=== PATIENT | male | born 1975 | race Caucasian/White ===

== ENCOUNTER → 2017-12-15 | Outpatient (CLI) | payer OTHER ==
--- NOTE | 2017-12-15 15:18 | CT ---
EXAMINATION TYPE: CT lumbar spine wo/w con DATE OF EXAM: 12/15/2017 COMPARISON: MR lumbar spine 09/21/2010 HISTORY: Low back pain CT DLP: 2852.0 mGycm Automated exposure control for dose reduction was used. CONTRAST: CT scan of the lumbar is performed without and with IV Contrast, patient injected with mL of Omnipaqu e [address] of the lumbar spine was performed. Bone and soft tissue window settings are submitted as well as coronal and sagittal reconstructions. FINDINGS: There is a mild spinal curvature. Multilevel spondylosis is present. Lumbar vertebral bodies show pre served height, alignment, there is loss of disc height at the intervertebral levels as on prior exam compatible with degenerative disc disease, vacuum phenomenon present at L4-5. Stimulator lead is pres ent coursing within the thecal sac from approximately L3-4 level. No abnormal enhancement on contrast administration. Small cortical cysts suspected within the right kidney. L1-L2: There is facet arthropathy change present. No significant stenosis. No significant foraminal e ncroachment or sizable disc herniation. L2-L3: Broad-based posterior disc bulge causes mild anterior mass effect on the thecal sac. No signif icant foraminal encroachment is central canal stenosis. L3-L4: Posterior disc bulge causes mild effacement of anterior thecal sac. No significant foraminal e ncroachment on the left, circumferential extension endplate disc complex encroaches mildly on the rig ht neural foramen. L4-L5: Posterior extension of endplate disc complex contacts anterior thecal sac, no significant cent ral stenosis, circumferential extension endplate disc complex encroaches somewhat on the neural mario en on the right greater than left, there is facet arthropathy. L5-S1: Posterior broad-based disc bulge could contact the proximal S1 nerve root left greater than ri ght, anterior thecal sac, no significant spinal stenosis. There is associated facet arthropathy. IMPRESSION: Degenerative disc disease, facet arthropathy as described. Post instrumentation changes. Additional f indings above.
== END | disposition home or self-care (01) ==
LOC: RADCTMAIN 13:50
PROVIDERS: ATTEND Anesthesiology Pain Medicine
DX: M51.27 Other intervertebral disc displacement, lumbosacral region (principal); M51.36 Other intervertebral disc degeneration, lumbar region; M46.86 Other specified inflammatory spondylopathies, lumbar region; Z98.890 Other specified postprocedural states
CPT/HCPCS: 72133; Q9967

== ENCOUNTER → 2018-05-25 | Outpatient (CLI) | payer MEDICARE, OTHER ==
[2018-05-25 13:17] LABS: Albumin 3.6 g/dL (3.5-5.0); Bilirubin, Delta 0.3 mg/dL (0.0-0.2); Bilirubin,Unconjugated 0.1 mg/dL (0.0-1.1); Total Bilirubin 0.4 mg/dL (0.2-1.3); Total Protein 6.5 g/dL (6.3-8.2)
== END | disposition home or self-care (01) ==
LOC: LABWHC1 12:42
PROVIDERS: ATTEND Physician Assistant
DX: Z51.81 Encounter for therapeutic drug level monitoring (principal); Z79.891 Long term (current) use of opiate analgesic
CPT/HCPCS: 36415; 80076

== ENCOUNTER → 2018-12-31 | Outpatient (CLI) | payer BC ==
--- NOTE | 2018-12-31 13:00 | CT ---
EXAMINATION TYPE: CT lumbar spine wo/w con DATE OF EXAM: 12/31/2018 COMPARISON: 12/15/2017 HISTORY: Follow up scan per patient. CT DLP: 3051 mGycm CONTRAST: Unenhanced CT of the lumbar spine is performed without and with IV Contrast, patient injected with 10 0 mL of Isovue 300. Unenhanced CT of the lumbar spine was performed. Bone and soft tissue window settings are submitted as well as coronal and sagittal reconstructions. L1-L2: There is facet arthropathy change present. No significant stenosis. No significant foraminal e ncroachment or sizable disc herniation. L2-L3: Broad-based posterior disc bulge causes mild anterior mass effect on the thecal sac. No signif icant foraminal encroachment is central canal stenosis. L3-L4: Posterior disc bulge causes mild effacement of anterior thecal sac. No significant foraminal e ncroachment on the left, circumferential extension endplate disc complex encroaches mildly on the rig ht neural foramen. L4-L5: Posterior extension of endplate disc complex contacts anterior thecal sac, no significant cent ral stenosis, circumferential extension endplate disc complex encroaches somewhat on the neural mario en on the right greater than left, there is facet arthropathy. L5-S1: Posterior broad-based disc bulge could contact the proximal S1 nerve root left greater than ri ght, anterior thecal sac, no significant spinal stenosis. Facet arthropathy noted. No paraspinal masses are identified. Stimulator lead redemonstrated. No pathologic enhancement. Lumba r segments are free if fracture. IMPRESSION: 1. Stable degenerative changes as noted.
== END | disposition home or self-care (01) ==
LOC: RADCTMAIN 10:34
PROVIDERS: ATTEND Anesthesiology Pain Medicine
DX: M47.816 Spondylosis without myelopathy or radiculopathy, lumbar region (principal)
CPT/HCPCS: 72133; Q9967

== ENCOUNTER → 2019-05-14 | Outpatient (CLI) | payer MEDICARE ==
[2019-05-14 15:43] LABS: African American GFR (CKD) 120.8 (60.0-200.0); Albumin/Globulin Ratio 1.82 (1.60-3.17); Anion Gap 7.7 mmol/L (4.00-12.00); BUN/Creat Ratio 12.22 Ratio (12.00-20.00); Carbon Dioxide 24.3 mmol/L (21.6-31.8); Globulin 2.2 g/dL (1.6-3.3); Potassium 4.6 mmol/L (3.5-5.5); Total Bilirubin 0.4 mg/dL (0.2-1.2); Total Protein 6.2 g/dL (6.2-8.2)
== END | disposition home or self-care (01) ==
LOC: LABWHC1 11:01
PROVIDERS: ATTEND Physician Assistant
DX: Z51.81 Encounter for therapeutic drug level monitoring (principal); Z79.891 Long term (current) use of opiate analgesic
CPT/HCPCS: 36415; 80053

== ENCOUNTER → 2020-11-04 | Outpatient (CLI) | payer MEDICARE ==
[2020-11-04 21:16] LABS: Albumin/Globulin Ratio 1.54 (1.60-3.17); Anion Gap 9.2 mmol/L (4.00-12.00); Calcium 9.3 mg/dL (8.7-10.3); Carbon Dioxide 24.8 mmol/L (21.6-31.8); Globulin 2.6 g/dL (1.6-3.3); Non-African American GFR(CKD) 103.5 (60.0-200.0); Potassium 4.7 mmol/L (3.5-5.5); Total Bilirubin 0.3 mg/dL (0.2-1.2); Total Protein 6.6 g/dL (6.2-8.2)
== END | disposition home or self-care (01) ==
LOC: LABWHC1 12:44
PROVIDERS: ATTEND Physician Assistant
DX: Z51.81 Encounter for therapeutic drug level monitoring (principal); Z79.891 Long term (current) use of opiate analgesic
CPT/HCPCS: 36415; 80053